=== PATIENT | female | born 1980 | race American Indian/Alaskan Native ===

== ENCOUNTER 2016-09-23 17:30 | Inpatient (IN) | payer BC, OTHER ==
[2016-09-23] MEDS ORDERED: CITRIC ACID/SODIUM CITRATE 30 ML UNIT-DOSE CUP PO ONE (18:08)
[2016-09-23] MEDS: ELECTROLYTE-148 SOLN 1,000 ML IV SCH (18:15)
[2016-09-23 18:23] VITALS: BMI 29.5
[2016-09-23 19:18] LABS: BASOPHIL 0.6 % (0-2.0); EOSINOPHIL 1.3 % (0-4.5); MCHC 32.6 g/dl (32.0-36.0); MEAN CELL VOLUME 95.1 fl (80-96); MEAN PLT VOLUME 10.3 fl (7.5-11.1); NEUTROPHILS 62.4 % (42.8-82.8); PLATELET COUNT 142 K/MM3 (134-434); RDW 14.8 % (11.6-15.6); WHITE BLOOD COUNT 15.1 K/mm3 (4.0-10.0)
[2016-09-23 19:28] LABS: URINE APPEARANCE SLCLOUDY; URINE BILIRUBIN NEGATIVE (NEGATIVE); URINE BLOOD NEGATIVE (NEGATIVE); URINE COLOR STRAW; URINE GLUCOSE (UA) NEGATIVE (NEGATIVE); URINE KETONE NEGATIVE (NEGATIVE); URINE NITRITE NEGATIVE (NEGATIVE); URINE PROTEIN NEGATIVE (NEGATIVE); URINE UROBILINOGEN NEGATIVE E.U./dl (0.2-1.0)
[2016-09-23 19:38] LABS: URINE LEUK ESTERASE TRACE (NEGATIVE)
[2016-09-23 19:39] LABS: ANION GAP 11 (8-16); CALCIUM 8.7 mg/dL (8.5-10.1); CO2 22 mmol/L (21-32); CREATININE 0.8 mg/dL (0.55-1.02); GLUCOSE,RANDOM 63 mg/dL (74-106); SGOT/AST 146 U/L (15-37); SGPT/ALT 275 U/L (12-78)
[2016-09-23 19:40] LABS: URINE BACTERIA MODERATE /hpf (NONE SEEN); URINE MUCUS RARE; URINE RBC <1 /hpf (0-3); URINE WBC 4 /hpf (3-5)
[2016-09-23 19:41] LABS: ACTIVATED PTT 30.3 SECONDS (26.9-34.4); INR 0.97 (0.82-1.09); PROTHROMBIN TIME (PATIENT) 10.7 SEC (9.98-11.88)
--- NOTE | 2016-09-23 20:30 | HP ---
Past Medical History - Primary Care Physician PCP:: Walt Hubbard - Admission Chief Complaint: 35 yo P0 at 35.1 wks with IVF, di/di twin gestatin, GDMA,. seen on 09/20/16, c/o generalized itching, LFTs and bile acids sent. Today during the office visit LFTs noted to be ALT/AST = 520/392, Bile acids - Pending. She reports no JOSEPH, visual changes, RUQ pain, still some itching History Source: Patient Limitations to Obtaining History: No Limitations - Past Medical History ...: 1 ...Para: 0 ...Term: 0 ...: 0 ...Spon : 0 ...Induced : 0 ...Multiple Gestation: 1 ...EDC by Sono: 10/27/16 - Past Surgical History Past Surgical History: Yes: None Hx Myomectomy: Yes Hx Transabdominal Cerclage: Yes - Smoking History Smoking history: Never smoked Have you smoked in the past 12 months: No - Alcohol/Substance Use Hx Alcohol Use: No History of Substance Use: reports: None - Social History Usual Living Arrangement: Yes: With Significant Other Home Medications - Allergies Allergies/Adverse Reactions: Allergies Allergy/AdvReac Type Severity Reaction Status Date / Time No Known Allergies Allergy Verified 09/23/16 18:04 - Home Medications Home Medications: Ambulatory Orders Vit/Iron Fumarate/FA [ Tablet] 1 each PO DAILY 09/23/16 Physical Exam - Maternity Vital Signs: Vital Signs Temperature 98.2 F 09/23/16 18:00 Pulse Rate 76 09/23/16 18:00 Respiratory Rate 18 09/23/16 18:00 Blood Pressure 119/81 09/23/16 18:00 O2 Sat by Pulse Oximetry (%) Constitutional: Yes: Well Nourished Eyes: Yes: WNL HENT: Yes: WNL Neck: Yes: WNL Cardiovascular: Yes: WNL Lungs: Clear to auscultation Breast(s): Yes: WNL - Abdominal Exam/OB Number of Fetuses: Multiple Presentation: Vertex Contractions: Yes Regularity: Irregular Intensity: Unaware Monitor Mode: External Heart Rate (range): 130/140 category 1 Heart Rate Location: Midline Category: I Accelerations: Uniform Decelerations: None - Vaginal Exam/OB Vaginal Bleediing: No Speculum Exam: No (deferred) Presentation: Vertex/Position (twice) - Physical Exam Musculoskeletal: Yes: WNL Extremities: Yes: WNL Integumentary: Yes: WNL ...Motor Strength: WNL Psychiatric: Yes: WNL - Labs Lab Results: CBC, BMP 09/23/16 18:45 09/23/16 18:45 Assessment/Plan 35 yo P 0 @ 35.1 wks with di/di twins and GDM DDx: 1. atypical HELLP 2. Cholestasis of case discussed with Dr. Lucas MFM will admit for observation, repeat labs in am meanwhile Betamethasone NPO past Mn Heplock IV FHR monitor Q 3hr Plan delivery via c/section if worsening status
[2016-09-23] MEDS ORDERED: BETAMET ACET/BETAMET NA PH 30 MG/5 ML VIAL IM ONE (20:51)
[2016-09-24 08:25] LABS: MCH 31.7 pg (25.7-33.7); MCHC 33.3 g/dl (32.0-36.0); MEAN CELL VOLUME 95.2 fl (80-96); MEAN PLT VOLUME 10.8 fl (7.5-11.1); PLATELET COUNT 167 K/MM3 (134-434); RDW 14.6 % (11.6-15.6); WHITE BLOOD COUNT 19.8 K/mm3 (4.0-10.0)
[2016-09-24 08:42] LABS: ANION GAP 11 (8-16); CALCIUM 9.4 mg/dL (8.5-10.1); CO2 20 mmol/L (21-32); GLUCOSE,RANDOM 99 mg/dL (74-106); URIC ACID 9.2 mg/dL (2.6-7.2)
[2016-09-24 08:43] LABS: SGOT/AST 121 U/L (15-37); SGPT/ALT 264 U/L (12-78)
[2016-09-24 09:01] LABS: INR 0.97 (0.82-1.09); PROTHROMBIN TIME (PATIENT) 10.7 SEC (9.98-11.88)
--- NOTE | 2016-09-24 09:42 | PN ---
Progress Note, Physician Chief Complaint: 35yo P0 with Di/Di twins admited due to significantly elevated LFTs no complains of JOSEPH, visual disturbances, or RUQ pain - Current Medication List Current Medications: Active Medications Betamethasone Acet/Betameth SodPhos (Celestone Soluspan -) 15 mg IM ONCE ONE Stop: 09/24/16 10:01 Parenteral Electrolytes (Plasma-Lyte 148 -) 1,000 mls @ 125 mls/hr IV ASDIR DIANNE Last Admin: 09/23/16 18:15 Dose: 125 mls/hr - Objective Vital Signs: Vital Signs Temperature 98.1 F 09/24/16 09:00 Pulse Rate 76 09/24/16 09:00 Respiratory Rate 18 09/24/16 09:00 Blood Pressure 130/72 09/24/16 09:00 O2 Sat by Pulse Oximetry (%) Constitutional: Yes: Well Nourished Eyes: Yes: WNL Neck: Yes: WNL Cardiovascular: Yes: WNL Respiratory: Yes: WNL Gastrointestinal: Yes: WNL Genitourinary: Yes: WNL Musculoskeletal: Yes: WNL Extremities: Yes: WNL Integumentary: Yes: WNL Neurological: Yes: WNL ...Motor Strength: WNL Psychiatric: Yes: WNL Additional Findings/Remarks: FHR A:130s category 1 FHR B: 140s Category 1 TOCO: irregular contractions Labs: CBC, BMP 09/24/16 08:10 09/24/16 08:10 INR, PTT INR 0.97 (0.82-1.09) 09/24/16 08:10 Fibrinogen 434.0 mg/dL (238-498) 09/24/16 08:10 Assessment/Plan 35 yo P 0 @ 35.1 wks with di/di twins and GDM DDx: 1. atypical HELLP vs. 2. Cholestasis of labs stable this am continue observation, repeat labs 6pm Second dose Betamethasone @ 8pm NPO past Mn Heplock IV FHR monitor Q 3hr Plan delivery via c/section if worsening status
[2016-09-24] MEDS ORDERED: BETAMET ACET/BETAMET NA PH 30 MG/5 ML VIAL IM ONE (10:00)
[2016-09-24 13:19] LABS: PLATELET ESTIMATE ADEQUATE (NORMAL)
[2016-09-24 19:32] LABS: MCHC 32.5 g/dl (32.0-36.0); MEAN CELL VOLUME 95.3 fl (80-96); MEAN PLT VOLUME 11.1 fl (7.5-11.1); PLATELET COUNT 154 K/MM3 (134-434); RDW 14.4 % (11.6-15.6); WHITE BLOOD COUNT 25.1 K/mm3 (4.0-10.0)
[2016-09-24 19:59] LABS: ANION GAP 12 (8-16); CALCIUM 8.4 mg/dL (8.5-10.1); CO2 22 mmol/L (21-32); CREATININE 0.9 mg/dL (0.55-1.02); GLUCOSE,RANDOM 112 mg/dL (74-106); URIC ACID 9.7 mg/dL (2.6-7.2)
[2016-09-24 20:00] LABS: SGOT/AST 84 U/L (15-37); SGPT/ALT 193 U/L (12-78)
[2016-09-24 20:19] LABS: PLATELET ESTIMATE ADEQUATE (NORMAL)
[2016-09-25 08:26] LABS: MCH 31.7 pg (25.7-33.7); MCHC 33.1 g/dl (32.0-36.0); MEAN CELL VOLUME 95.7 fl (80-96); MEAN PLT VOLUME 10.6 fl (7.5-11.1); PLATELET COUNT 142 K/MM3 (134-434); RDW 14.7 % (11.6-15.6)
--- NOTE | 2016-09-25 08:30 | PN ---
Ante-Partal Exam - Subjective Subjective: Pt w/o complaints. No headache, no scotoma, no blurry vision, no abdominal or back pain, no nausea or vomiting. Vital Signs: Vital Signs Temperature 98.1 F 09/25/16 06:00 Pulse Rate 76 09/25/16 08:00 Respiratory Rate 18 09/25/16 08:00 Blood Pressure 131/77 09/25/16 08:00 O2 Sat by Pulse Oximetry (%) Bleeding: No Headache: No Visual changes: No Right upper quadrant pain: No Pain (scale 1-10): 0 - Contractions Contractions: Yes Regularity: Irritability Intensity: Unaware Monitor Mode: External - Exam during Labor Heart Rate: 120,130 Variability: Moderate Heart Rate Location: Midline Category: I Monitor Accelerations: Present Monitor Decelerations: None Amniotic Membrane Status: Intact *Physical Exam - Vital Signs Last Vital Signs Temp Pulse Resp BP Pulse Ox 98.1 F 76 18 131/77 09/25/16 06:00 09/25/16 08:00 09/25/16 08:00 09/25/16 08:00 - Physical Exam Comments: 09/25/16 08:29 Comfortable, well appearing, lying in bed General Appearance: Yes: Nourished HEENT: positive: EOMI, Normal ENT Inspection, Normal Voice Neck: positive: Trachea midline, Normal Thyroid Respiratory/Chest: positive: Lungs Clear, Normal Breath Sounds Cardiovascular: positive: Regular Rhythm, Regular Rate Vascular Pulses: Femoral (R): 2+, Femoral (L): 2+ Gastrointestinal/Abdominal: positive: Normal Bowel Sounds, Other (gravid) Musculoskeletal: positive: Normal Inspection Extremity: positive: Pedal Edema (to knee) Integumentary: positive: Normal Color, Dry, Warm Neurologic: positive: delivery table operator II-XII NML intact, Fully Oriented, Alert, Normal Mood/ Affect, Normal Response Assessment/Plan 35yo P0 with twin gestation at [id number] admitted with elevated LFT and suspected HELLP vs cholestasis of . The pt is asymptomatic, afebrile, stable and appears well. 1. Fetuses are with Category I tracing. 2. LFT have improved and there are no new s/sx of preeclampsia 3. Renal function is decreased with elevated Creat and Uric Acid. However, those are also stable. Atypical preeclampsia/HELLP is considered. 4. Leukocytosis is possibly due to the steroid injections. There are not s/sx's of infection 5. GDM is diet controlled. Plan on checking FSG 6. Plan on discussing with MFM re: delivery plans after lab results for today are available 7. Liver and renal US
[2016-09-25 08:38] LABS: WHITE BLOOD COUNT 39.1 K/mm3 (4.0-10.0)
[2016-09-25] MEDS: LACTATED RINGERS SOLUTION 1,000 ML IV SCH ×2 (08:45→21:01)
[2016-09-25 08:52] LABS: INR 0.99 (0.82-1.09); PROTHROMBIN TIME (PATIENT) 10.9 SEC (9.98-11.88)
[2016-09-25 08:55] LABS: ACTIVATED PTT 26.7 SECONDS (26.9-34.4)
[2016-09-25 09:12] LABS: ALBUMIN 2.4 g/dl (3.4-5.0); ALK PHOS 242 U/L (45-117); ANION GAP 12 (8-16); BILIRUBIN,TOTAL 0.5 mg/dL (0.2-1.0); CALCIUM 8.7 mg/dL (8.5-10.1); CO2 21 mmol/L (21-32); GLUCOSE,RANDOM 101 mg/dL (74-106); SGOT/AST 93 U/L (15-37); SGPT/ALT 183 U/L (12-78); TOT PROT 5.8 g/dl (6.4-8.2); URIC ACID 10.2 mg/dL (2.6-7.2)
[2016-09-25 10:55] LABS: METAMYELOCYTE 1 % (0-2)
[2016-09-25 10:56] LABS: PLATELET ESTIMATE SLT DECREASED (NORMAL)
[2016-09-26 08:17] LABS: MCH 31.5 pg (25.7-33.7); MEAN CELL VOLUME 95.5 fl (80-96); MEAN PLT VOLUME 9.7 fl (7.5-11.1); PLATELET COUNT 112 K/MM3 (134-434); RDW 14.3 % (11.6-15.6)
[2016-09-26 08:24] LABS: WHITE BLOOD COUNT 39.1 K/mm3 (4.0-10.0)
[2016-09-26 08:56] LABS: ALBUMIN 2.3 g/dl (3.4-5.0); ANION GAP 8 (8-16); CALCIUM 7.8 mg/dL (8.5-10.1); CO2 24 mmol/L (21-32); GLUCOSE,RANDOM 98 mg/dL (74-106); SGOT/AST 201 U/L (15-37); SGPT/ALT 253 U/L (12-78); TOT PROT 5.1 g/dl (6.4-8.2); URIC ACID 10.7 mg/dL (2.6-7.2)
[2016-09-26 08:58] LABS: ALK PHOS 218 U/L (45-117); BILIRUBIN,TOTAL 0.4 mg/dL (0.2-1.0)
[2016-09-26 09:07] LABS: METAMYELOCYTE 1 % (0-2); SMUDGE CELLS FEW
[2016-09-26 09:09] LABS: PLATELET COMMENT2 NO CLOTTING DETECTED; PLATELET ESTIMATE SLT DECREASED (NORMAL)
[2016-09-26 09:10] LABS: ANISOCYTOSIS 1+
--- NOTE | 2016-09-26 10:05 | PN ---
Ante-Partal Exam - Subjective Subjective: No complaints No headache, no dizziness, no right upper quadrant pain. + FM No loss of fluid or vaginal bleeding. Vital Signs: Vital Signs Temperature 97.5 F L 09/26/16 09:27 Pulse Rate 70 09/26/16 09:27 Respiratory Rate 18 09/26/16 09:27 Blood Pressure 129/80 09/26/16 09:27 O2 Sat by Pulse Oximetry (%) Bleeding: No Headache: No Visual changes: No Right upper quadrant pain: No - Contractions Contractions: No - Assessment/Plan Assessment/Plan: 35 yo @ 35 weeks with di/di twins, gestational diabetes, admitted for abnormal LFTs / suspect atypical HELLP syndrome Laboratory Tests 09/25/16 09/25/16 09/26/16 08:05 08:05 07:45 Plt Count 142 112 L D BUN 18 D Creatinine 1.0 Uric Acid 10.2 H AST 93 H ALT 183 H 09/26/16 07:45 Plt Count BUN 23 H D Creatinine 1.0 Uric Acid 10.7 H AST 201 H D ALT 253 H D 1. no symptoms of PEC at this time, BP normal Noted to have decrease in platelets and increase in AST/ALT, Uric Acid and BUN. 24 hour urine pending Likely worsening of symptoms at this time Discussed plan for possible delivery today. 2. Plan for NPO now, last oral intake at 915 will restart IVF 3. Will discuss case with MFM, awaiting 24 hour urine protein 4. Reassuring tracing - s/p steroid course Will notify NICU for delivery 5. Will monitor
[2016-09-26 14:20] LABS: URINE COLLECTION TIME 24 HOURS; URINE PROTEIN 30 mg/dl
[2016-09-26] MEDS: ELECTROLYTE-148 SOLN 1,000 ML IV SCH (16:00)
--- NOTE | 2016-09-26 17:28 | PN ---
Progress Note (short form) - Note Progress Note: 35yo P0 with twin gestation 35w4d and suspected atypical HELLP. Pt is s/p steroids, noted to have increasing LFT, decreased renal fxn, and decreasing plt count. We discussed mgt options with MFM (Dr. Lucas) and the pt. The decision was made to proceed with delivery by C/S. We discussed the risks and benefits of C/S at length, including but not limited to scarring, pain , bleeding, infection, injury to underlying organs and structures, need for additional surgery to repair/treat any problems or complications, complications/injuries, etc. The pt verbalized her understanding and requested to proceed with surgery.
[2016-09-26 18:26] LABS: ARTERIAL BLOOD GAS pH 7.35 (7.35-7.45)
[2016-09-26 18:27] LABS: ART PUNCT SITE OTHER; ARTERIAL BLD GAS O2 SATURATION 62.6 % (90-98.9); ARTERIAL BLOOD GAS BASE EXCESS -2.2 meq/l (-2-2); ARTERIAL BLOOD GAS HCO3 22.9 meq/L (22-26); ARTERIAL BLOOD GAS PO2 28.8 mmHg (80-100); LPM/O2% 21%; PT. ON O2? n; TYPE OF O2 r/a
[2016-09-26 18:32] LABS: ARTERIAL BLD GAS O2 SATURATION 64.7 % (90-98.9); ARTERIAL BLOOD GAS PO2 29.7 mmHg (80-100); ARTERIAL BLOOD GAS pH 7.35 (7.35-7.45)
[2016-09-26 18:34] LABS: ART PUNCT SITE OTHER; LPM/O2% 21%; PT. ON O2? NO; TYPE OF O2 R/A
[2016-09-26 18:36] LABS: ARTERIAL BLD GAS O2 SATURATION 56.9 % (90-98.9); ARTERIAL BLOOD GAS BASE EXCESS -2.1 meq/l (-2-2); ARTERIAL BLOOD GAS PO2 26.8 mmHg (80-100); ARTERIAL BLOOD GAS pH 7.35 (7.35-7.45)
[2016-09-26 18:37] LABS: ART PUNCT SITE OTHER; ARTERIAL BLOOD GAS HCO3 23.2 meq/L (22-26); LPM/O2% 21%; PT. ON O2? NO; TYPE OF O2 R/A
[2016-09-26] MEDS ORDERED: ONDANSETRON 4 MG/2 ML VIAL IVPB PRN (18:47)
[2016-09-26] MEDS ORDERED: IBUPROFEN 600 MG TABLET (FP) PO PRN (18:47)
--- NOTE | 2016-09-26 19:09 | OP ---
Operative Note - Note: Operative Date: 09/26/16 Pre-Operative Diagnosis: Twin at EGA 35w4d. Atypical HELLP syndrome Operation: Primary LT C/S Findings: Live baby A- girl in vtx presentaton Live baby B- girl in vtx presentation Uterine atony intra/post-operatively, responded to uterine massage Normal uterus, tubes, ovaries Post-Operative Diagnosis: Same as Pre-op Surgeon: Titus Wolfe [employer] Team Member: Isela Hahn Anesthesiologist/COMPUTER SYSTEMS SOFTWARE ARCHITECT: Chas Voss Anesthesia: Spinal Specimens Removed: Placenta Estimated Blood Loss (mls): 1,000 Drains & Tubes with Location: Cortes Cath Drains, Volume Out (mls): 200 (clear) Blood Volume Replaced (mls): 0 Fluid Volume Replaced (mls): 1,500 Operative Report Dictated: Yes
[2016-09-26] MEDS ORDERED: BENZOCAINE 20% 57 GM BOTTLE TP PRN (19:17)
[2016-09-26] MEDS ORDERED: BENZOCAINE 28 GM HEMORRHOIDAL OINTMENT TP PRN (19:17)
[2016-09-26] MEDS ORDERED: oxyCODONE HCL 5 MG TABLET PO PRN (19:17)
[2016-09-26] MEDS ORDERED: METHYLERGONOVINE MALEATE 0.2 MG/1 ML AMP IM PRN (19:17)
[2016-09-26] MEDS ORDERED: WITCH HAZEL 50% (TUCKS) 40 PAD/JAR PAD TP PRN (19:17)
[2016-09-26] MEDS ORDERED: IBUPROFEN 800 MG/8 ML IJ IVPB PRN (19:17)
[2016-09-26] MEDS ORDERED: CEFAZOLIN 1 GM/D5W 50 ML IVPB SCH (19:30)
--- NOTE | 2016-09-26 19:52 | OP ---
DATE OF OPERATION: 09/26/2016 PREOPERATIVE DIAGNOSIS: Twin at estimated gestational age of 35 weeks and 4 days. Atypical HELLP syndrome. POSTOPERATIVE DIAGNOSIS: Twin at estimated gestational age of 35 weeks and 4 days. Atypical HELLP syndrome, delivered. PROCEDURE: Primary low transverse section via Pfannenstiel skin incision. SURGEON: Darlene Wolfe M.D. TOXICOLOGY SUPERVISOR: Isela Hahn M.D. ANESTHESIOLOGIST: Chas Voss M.D. ANESTHESIA: Spinal. COMPLICATIONS: None. ESTIMATED BLOOD LOSS: 1000 mL. URINE OUTPUT: 200 mL of clear urine at the end of the procedure. INTRAVENOUS FLUIDS: 1500 mL of crystalloids. PATHOLOGY: Placenta. FINDINGS: Live baby A girl in vertex presentation. Live baby B girl in vertex presentation. Normal uterus, fallopian tubes, and ovaries. Uterine atony was diagnosed postoperatively prior to transferring the patient out of the OR to recovery room and was treated successfully with a uterine bimanual massage. Approximately 200 to 300 mL of clots were expressed with the bimanual massage, and the uterus was noted to be well contracted and good hemostasis. OPERATIVE REPORT: The patient was PROCEDURE: The patient was met preoperatively. Risks, benefits, and alternatives of surgery were discussed in detail. All questions were answered. The patient was then brought to the OR with the IV running. She was placed on the surgical table in the sitting position. The spinal anesthesia was achieved without difficulty. The patient was then placed on a surgical table in the supine position with leftward tilt. The patient was prepped and draped in the usual sterile fashion. A Cortes catheter was inserted in the bladder and left to drain to gravity. The surgeons then proceeded with the operation. The Pfannenstiel skin incision was made with the knife approximately 2 cm above the pubic symphysis. The incision was carried down to the level of fascia with the knife. Good hemostasis was maintained using cautery judiciously. The fascia was incised in the midline, and the incision was extended bilaterally using curved Flores scissors. The fascia was dissected away from the rectus muscle superiorly and inferiorly using sharp and blunt dissection. The rectus muscles were in the midline bluntly. The peritoneum was identified and entered bluntly. The peritoneal incision was then extended superiorly and inferiorly. The bladder was then dissected away from the lower uterine segment using sharp dissection. The bladder was reflected downwards using Esmer retractor. The uterus was incised transversely in the lower uterine segment. The uterine incision was extended bilaterally using bandage scissors. The amniotic sac was ruptured, and clear amniotic fluid was noted. Twin A was delivered from vertex presentation without complication. Twin A had a nuchal cord wrapped around once and was released without difficulty. The umbilical cord was clamped and cut. The baby was crying spontaneously and was handed to the waiting regulatory affairs assistant. Twin B was also found in the vertex presentation. There was no apparent second amniotic sac around twin B, and the twin B was delivered from vertex presentation without complications. The baby was crying spontaneously. The umbilical cord was clamped and cut, and the baby was handed to the waiting regulatory affairs assistant. Umbilical cord gases were then obtained from both umbilical cords. The placenta was delivered manually and without complications. The uterus was cleared of all clots and debris using laparotomy laps. The uterine incision was repaired using 0 Biosyn suture in a running, locking stitch with good hemostasis and approximation. The uterine incision was then imbricated using a secondary layer of closure with the 0 Biosyn suture once again, good hemostasis was noted. The uterus was noted to be well contracted and the bladder peritoneum was then repaired using a 2-0 chromic suture with running stitch. The operative site was then irrigated using copious amounts of normal saline. Normal saline was aspirated, and once the normal saline was aspirated, good hemostasis was once again confirmed. The abdominal peritoneum was then closing using a 2-0 chromic suture in a running stitch. The rectus muscles were approximated using several interrupted 2-0 chromic sutures. The fascia was closed using a 0 Vicryl suture with a running stitch with good hemostasis and approximation. The subcutaneous adipose tissues were closed using several interrupted 0 Vicryl sutures with good hemostasis and approximation. The skin was closed using a 4-0 Biosyn suture using a subcutaneous stitch with good hemostasis and approximation. Sponge, lap, and needle counts were correct. The surgery was completed. Postoperatively, the patient was diagnosed with uterine atony, and a bimanual uterine massage was performed. Most of the clots were expressed from the lower uterine segment. Once the bimanual massage was completed, good hemostasis was noted, and the uterus was noted to be well contracted. The patient was then transferred to recovery room awake and in stable condition. DARLENE WOLFE M.D. BRENDAN/[id number]
[2016-09-26 21:20] LABS: MCH 30.6 pg (25.7-33.7); MCHC 31.5 g/dl (32.0-36.0); MEAN CELL VOLUME 97.3 fl (80-96); MEAN PLT VOLUME 11.2 fl (7.5-11.1); PLATELET COUNT 115 K/MM3 (134-434); RDW 14.6 % (11.6-15.6); WHITE BLOOD COUNT 26.5 K/mm3 (4.0-10.0)
[2016-09-26] MEDS: OXYTOCIN 20 UNITS in 0.9% NS 1,000 ML IV SCH (21:30)
[2016-09-26 21:47] LABS: INR 1.14 (0.82-1.09); PROTHROMBIN TIME (PATIENT) 12.6 SEC (9.98-11.88)
[2016-09-26 22:00] LABS: ALBUMIN 1.7 g/dl (3.4-5.0); ALK PHOS 163 U/L (45-117); ANION GAP 8 (8-16); BILIRUBIN,TOTAL 0.3 mg/dL (0.2-1.0); CALCIUM 7.6 mg/dL (8.5-10.1); CO2 23 mmol/L (21-32); CREATININE 0.9 mg/dL (0.55-1.02); GLUCOSE,RANDOM 94 mg/dL (74-106); SGOT/AST 299 U/L (15-37); SGPT/ALT 280 U/L (12-78); URIC ACID 9.8 mg/dL (2.6-7.2)
[2016-09-27] MEDS: CEFAZOLIN (PRE-DOCKED) 50 ML IVPB SCH ×3 (01:44→19:53)
[2016-09-27] MEDS: OXYTOCIN 20 UNITS in 0.9% NS 1,000 ML IV SCH (01:44)
[2016-09-27 07:16] LABS: MCH 31.5 pg (25.7-33.7); MCHC 32.6 g/dl (32.0-36.0); MEAN CELL VOLUME 96.8 fl (80-96); PLATELET COUNT 110 K/MM3 (134-434); RDW 14.3 % (11.6-15.6)
[2016-09-27 07:37] LABS: ALBUMIN 1.6 g/dl (3.4-5.0); ANION GAP 6 (8-16); CALCIUM 7.2 mg/dL (8.5-10.1); CO2 24 mmol/L (21-32); CREATININE 0.8 mg/dL (0.55-1.02); GLUCOSE,RANDOM 83 mg/dL (74-106); SGOT/AST 303 U/L (15-37); URIC ACID 9.2 mg/dL (2.6-7.2)
[2016-09-27 07:41] LABS: ALK PHOS 146 U/L (45-117); BILIRUBIN,TOTAL 0.3 mg/dL (0.2-1.0); SGPT/ALT 306 U/L (12-78); TOT PROT 3.7 g/dl (6.4-8.2)
[2016-09-27 07:49] LABS: WHITE BLOOD COUNT 31.7 K/mm3 (4.0-10.0)
[2016-09-27] MEDS: PRENATAL VITAMINS W/ FOLIC ACID TABLET (FP) PO SCH (10:00)
[2016-09-27] MEDS ORDERED: DIPHTH,PERTUSS(ACELL),TET 0.5 ML DISP.SYRIN IM ONE (10:00)
--- NOTE | 2016-09-27 10:00 | PN ---
Progress Note (short form) - Note Progress Note: Anesthesia postop note 35 y/o F s/p spinal anesthesia for c/s, duramorph for postop pain management POD#1, vss, aaox3, pain well controlled, sensorymotor intact distally No anesthesia complications.
--- NOTE | 2016-09-27 11:03 | PN ---
Post Progress Note - Subjective Subjective: No complaints, sitting in a chair. Type of Delivery: Primary C/S Vital Signs: Vital Signs Temperature 98.2 F 09/27/16 06:00 Pulse Rate 81 09/27/16 06:00 Respiratory Rate 18 09/27/16 09:55 Blood Pressure 113/73 09/27/16 06:00 O2 Sat by Pulse Oximetry (%) 98 09/26/16 23:15 Breast Exam: Yes: Soft Uterus: Yes: Fundus Firm, Fundus @ umbilicus Incision: Yes: Dressing dry and intact Abdomen/GI: Yes: Abdomen soft, Tolerating PO Lochia: Yes: Rubra Lochia, amount: Small Extremities: Yes: Calves non-tender, Edema (++ bilaterally) Perineum: Yes: Intact Activity: Other (OOB chair) - Labs Labs: CBC WBC 31.7 K/mm3 (4.0-10.0) H* 09/27/16 06:00 RBC 2.26 M/mm3 (3.60-5.2) L 09/27/16 06:00 Hgb 7.1 GM/dL (10.7-15.3) L 09/27/16 06:00 Hct 21.8 % (32.4-45.2) L 09/27/16 06:00 MCV 96.8 fl (80-96) H 09/27/16 06:00 MCHC 32.6 g/dl (32.0-36.0) 09/27/16 06:00 RDW 14.3 % (11.6-15.6) 09/27/16 06:00 Plt Count 110 K/MM3 (134-434) L 09/27/16 06:00 MPV 11.0 fl (7.5-11.1) 09/27/16 06:00 Neutrophils % Y 09/27/16 06:00 Lymphocytes % Y 09/27/16 06:00 Monocytes % 1.0 % (3.8-10.2) L 09/26/16 07:45 Eosinophils % 1.0 % (0-4.5) 09/24/16 18:30 Basophils % 0.0 % (0-2.0) 09/24/16 08:10 Band Neutrophils 8.0 % (0-10) D 09/26/16 07:45 Metamyelocytes 1 % (0-2) 09/26/16 07:45 Myelocytes 1 % (0-2) D 09/26/16 07:45 Nucleated RBCs 1 % (0-0) H 09/26/16 07:45 Differential Comment Few large plts 09/26/16 07:45 Smudge Cells Few 09/26/16 07:45 Platelet Estimate Slt decreased (NORMAL) 09/26/16 07:45 Platelet Comment No clumping noted 09/26/16 07:45 Platelet Comment No clotting detected 09/26/16 07:45 Anisocytosis 1+ 09/26/16 07:45 Morphology Comment Slide scanned 09/24/16 18:30 Assessment/Plan 35yo P1 s/p primary LT C/S, POD#1, doing well, stable, afebrile. care instructions reviewed. Severe anemia due to acute blood loss. Plan to transfuse 2u PRBC Monitor labs, HELLP pannel. Continue routine postop and care. Ambulation encouraged after transfusion is done.
--- NOTE | 2016-09-27 13:58 | RAPID ---
Physical Examination Vital Signs: Vital Signs BP 111/74 HR 74 finger stick glucose 98 Temperature 97.8 F 09/27/16 10:00 Pulse Rate 87 09/27/16 10:00 Respiratory Rate 18 09/27/16 12:00 Blood Pressure 109/73 09/27/16 10:00 O2 Sat by Pulse Oximetry (%) 98 09/26/16 23:15 Constitutional: Yes: Well Nourished Eyes: Yes: WNL HENT: Yes: WNL, Atraumatic, Normocephalic Neck: Yes: WNL, Supple, Trachea Midline Cardiovascular: Yes: WNL, Regular Rate and Rhythm Respiratory: Yes: WNL, Regular, CTA Bilaterally Gastrointestinal: Yes: WNL, Normal Bowel Sounds Labs: CBC, BMP 09/27/16 06:00 09/27/16 06:00 Rapid Response - Rapid Response Assessment: Rapid response was called at 12:27 pm in [facility]. Rapid response team arrived immediately. Pt was found on the floor in the bathroom in sitting position. Two RNs were holding her. It was a witnessed fall. As per RN, the 2 RNs were helping her go to the bathroom. When the patient was trying to urinate, she blacked out. The RN was able to hold her, and she slid to a sitting position on the floor. She did not hit her head. No seizure activity or LOC was noted. Pt mentioned that she had never fainted, has no history of seizure. Denies CP, sob, cough, palpitations, abd pain, nausea, vomiting, headache, dizziness, tingling, numbness. Vitals were taken: BP 111/74, HR 74, RR 18, Sat 96% on room air, finger stick glucose 98. Physical Exam GENERAL: The patient is a young female in sitting position. Fully oriented x3, in no acute distress. HEAD: Normal with no signs of trauma. EYES: extraocular movements intact, sclera anicteric, conjunctiva clear. No ptosis. ENT: Ears normal, nares patent, dry mucous membranes. NECK: Trachea midline, full range of motion, supple. LUNGS: Breath sounds equal, clear to auscultation bilaterally, no wheezes, no crackles, no accessory muscle use. HEART: tachycardic, regular rhythm, S1, S2 without murmur, rub or gallop. ABDOMEN: Pt has bandages from her surgery. Soft, nontender, nondistended, bowel sounds. EXTREMITIES: 2+ pulses, warm, well-perfused, no edema. NEUROLOGICAL: No facial droop. Normal speech, gait not observed. Moving all extremities PSYCH: Slightly groggy. Normal mood, normal affect. SKIN: Warm, dry, normal turgor, no rashes or lesions noted Assessment and Plan 35 yo P 0 @ 35.1 wks with di/di twins and GDM post day 1 #vasovagal syncope -IVF 1 L bolus given -2 PRBCs were ordered prior to the rapid response. Recommend transfusion. -RN to inform Dr. Wolfe -after fluid resuscitation, pt's symptoms improved. Case discussed with Dr. Patel
[2016-09-27 14:06] LABS: METAMYELOCYTE 2 % (0-2); PLATELET ESTIMATE DECREASED (NORMAL)
[2016-09-27] MEDS: IBUPROFEN 600 MG TABLET (FP) PO PRN (16:20)
[2016-09-27] MEDS: ACETAMINOPHEN 325 MG TABLET (FP) PO PRN (16:21)
[2016-09-27] MEDS: SIMETHICONE 80 MG TAB.CHEW (FP) PO PRN (16:21)
[2016-09-27] MEDS ORDERED: BISACODYL 10 MG SUPP.RECT RC PRN (19:17)
[2016-09-27 23:05] LABS: MCH 30.2 pg (25.7-33.7); MCHC 33.2 g/dl (32.0-36.0); MEAN PLT VOLUME 10.9 fl (7.5-11.1); PLATELET COUNT 109 K/MM3 (134-434); RDW 16.9 % (11.6-15.6)
[2016-09-27 23:13] LABS: WHITE BLOOD COUNT 30.6 K/mm3 (4.0-10.0)
[2016-09-28] MEDS: SIMETHICONE 80 MG TAB.CHEW (FP) PO PRN ×3 (05:09→18:17)
[2016-09-28] MEDS: IBUPROFEN 600 MG TABLET (FP) PO PRN ×3 (05:09→18:18)
[2016-09-28] MEDS: ACETAMINOPHEN 325 MG TABLET (FP) PO PRN ×3 (05:10→18:17)
[2016-09-28 07:14] LABS: ANISOCYTOSIS 1+; MICROCYTOSIS 1+; PLATELET ESTIMATE ADEQUATE (NORMAL); POIKILOCYTOSIS 1+
[2016-09-28 08:02] LABS: MCH 30.9 pg (25.7-33.7); MCHC 34.2 g/dl (32.0-36.0); MEAN CELL VOLUME 90.5 fl (80-96); PLATELET COUNT 122 K/MM3 (134-434); RDW 17.1 % (11.6-15.6)
[2016-09-28 08:14] LABS: WHITE BLOOD COUNT 32.6 K/mm3 (4.0-10.0)
[2016-09-28 08:28] LABS: ALBUMIN 1.9 g/dl (3.4-5.0); ANION GAP 11 (8-16); CALCIUM 7.3 mg/dL (8.5-10.1); CO2 21 mmol/L (21-32); CREATININE 0.7 mg/dL (0.55-1.02); GLUCOSE,RANDOM 99 mg/dL (74-106); SGOT/AST 127 U/L (15-37); SGPT/ALT 162 U/L (12-78); URIC ACID 8.1 mg/dL (2.6-7.2)
[2016-09-28 08:30] LABS: ALK PHOS 158 U/L (45-117); BILIRUBIN,TOTAL 0.5 mg/dL (0.2-1.0); TOT PROT 4.2 g/dl (6.4-8.2)
[2016-09-28 08:34] LABS: ALBUMIN 1.8 g/dl (3.4-5.0); BILIRUBIN,DIRECT 0.1 mg/dL (0.0-0.2); BILIRUBIN,TOTAL 0.5 mg/dL (0.2-1.0); TOT PROT 4.4 g/dl (6.4-8.2)
[2016-09-28 08:45] LABS: INR 0.98 (0.82-1.09); PROTHROMBIN TIME (PATIENT) 10.8 SEC (9.98-11.88)
[2016-09-28 08:48] LABS: ACTIVATED PTT 27.8 SECONDS (26.9-34.4)
[2016-09-28 10:13] LABS: URINE 24 HOUR CREATININE 1137.5 MG/24HR (600-1800)
[2016-09-28 10:19] LABS: METAMYELOCYTE 1 % (0-2)
[2016-09-28 10:20] LABS: PLATELET ESTIMATE SLT DECREASED (NORMAL)
[2016-09-28] MEDS: PRENATAL VITAMINS W/ FOLIC ACID TABLET (FP) PO SCH (11:34)
--- NOTE | 2016-09-28 14:38 | PN ---
Post Progress Note - Subjective Subjective: 35 yo P2 s/p twin primary c/s for atypical HELLP near term Feels well, ambulating, voiding, tolarating PO, +flatus Post Day: 2 Type of Delivery: Primary C/S Vital Signs: Vital Signs Temperature 97.4 F L 09/28/16 09:34 Pulse Rate 77 09/28/16 09:34 Respiratory Rate 20 09/28/16 09:34 Blood Pressure 121/80 09/28/16 09:34 O2 Sat by Pulse Oximetry (%) 98 09/26/16 23:15 Breast Exam: Yes: Soft Uterus: Yes: Fundus Firm, Fundus below umbilicus, Non-tender Incision: Yes: Sutures intact Abdomen/GI: Yes: Abdomen soft, Tolerating PO Lochia: Yes: Rubra Lochia, amount: Small Extremities: Yes: Calves non-tender Activity: Ambulating - Labs Labs: CBC WBC 32.6 K/mm3 (4.0-10.0) H* 09/28/16 07:15 RBC 3.29 M/mm3 (3.60-5.2) L 09/28/16 07:15 Hgb 10.2 GM/dL (10.7-15.3) L 09/28/16 07:15 Hct 29.8 % (32.4-45.2) L 09/28/16 07:15 MCV 90.5 fl (80-96) 09/28/16 07:15 MCH 30.9 pg (25.7-33.7) 09/28/16 07:15 MCHC 34.2 g/dl (32.0-36.0) 09/28/16 07:15 RDW 17.1 % (11.6-15.6) H 09/28/16 07:15 Plt Count 122 K/MM3 (134-434) L 09/28/16 07:15 MPV 11.0 fl (7.5-11.1) 09/28/16 07:15 Neutrophils % 69.0 % (42.8-82.8) 09/28/16 07:15 Lymphocytes % 17.0 % (8-40) 09/28/16 07:15 Monocytes % 0.0 % (3.8-10.2) L D 09/28/16 07:15 Eosinophils % 0.0 % (0-4.5) D 09/28/16 07:15 Basophils % 0.0 % (0-2.0) 09/28/16 07:15 Band Neutrophils 6.0 % (0-10) D 09/28/16 07:15 Metamyelocytes 1 % (0-2) D 09/28/16 07:15 Myelocytes 7 % (0-2) H D 09/28/16 07:15 Nucleated RBCs 7 % (0-0) H 09/28/16 07:15 Differential Comment Manual diff done 09/28/16 07:15 Smudge Cells Few 09/26/16 07:45 Platelet Estimate Slt decreased (NORMAL) 09/28/16 07:15 Platelet Comment Few large plts 09/28/16 07:15 Platelet Comment No clotting detected 09/26/16 07:45 Poikilocytosis 1+ 09/27/16 22:00 Anisocytosis 1+ 09/27/16 22:00 Microcytosis 1+ 09/27/16 22:00 Macrocytosis 1+ 09/27/16 22:00 Morphology Comment Slide scanned 09/24/16 18:30 Retic Count 2.41 % (0.5-1.5) H 09/28/16 07:15 Assessment/Plan 35 yo P 2 now s/p 1' c/s with atypical HELLP s/p 2 Units PRBC Now improving coagulopathy continue observation, repeat labs 6am Rh positive no need for RhoGam Insentive spiromiter [place] ambulation Routine PP care
[2016-09-29] MEDS: SIMETHICONE 80 MG TAB.CHEW (FP) PO PRN ×3 (05:29→19:49)
[2016-09-29] MEDS: ACETAMINOPHEN 325 MG TABLET (FP) PO PRN ×3 (05:29→19:53)
[2016-09-29] MEDS: IBUPROFEN 600 MG TABLET (FP) PO PRN ×3 (05:29→19:52)
[2016-09-29 07:17] LABS: MCH 30.9 pg (25.7-33.7); MCHC 33.6 g/dl (32.0-36.0); MEAN CELL VOLUME 92.2 fl (80-96); MEAN PLT VOLUME 10.3 fl (7.5-11.1); PLATELET COUNT 143 K/MM3 (134-434); RDW 17.2 % (11.6-15.6)
[2016-09-29 07:31] LABS: WHITE BLOOD COUNT 33.5 K/mm3 (4.0-10.0)
[2016-09-29 07:52] LABS: INR 0.96 (0.82-1.09); PROTHROMBIN TIME (PATIENT) 10.6 SEC (9.98-11.88)
--- NOTE | 2016-09-29 07:59 | PN ---
Post Progress Note - Subjective Subjective: 35 yo P2 now s/p Primary c/s of twins with atypical twins no complains, not dizzy, no palpitations, no JOSEPH, no visual complains Post Day: 3 Type of Delivery: Primary C/S Vital Signs: Vital Signs Temperature 97.8 F 09/29/16 05:36 Pulse Rate 82 09/29/16 05:36 Respiratory Rate 20 09/29/16 05:36 Blood Pressure 128/78 09/29/16 05:36 O2 Sat by Pulse Oximetry (%) 98 09/26/16 23:15 Breast Exam: Yes: Soft Uterus: Yes: Fundus Firm Incision: Yes: Sutures intact Abdomen/GI: Yes: Abdomen soft, Tolerating PO Lochia: Yes: Rubra Lochia, amount: Small Extremities: Yes: Calves non-tender Activity: Ambulating - Labs Labs: CBC WBC 33.5 K/mm3 (4.0-10.0) H* 09/29/16 06:45 RBC 3.22 M/mm3 (3.60-5.2) L 09/29/16 06:45 Hgb 10.0 GM/dL (10.7-15.3) L 09/29/16 06:45 Hct 29.7 % (32.4-45.2) L 09/29/16 06:45 MCV 92.2 fl (80-96) 09/29/16 06:45 MCH 30.9 pg (25.7-33.7) 09/29/16 06:45 MCHC 33.6 g/dl (32.0-36.0) 09/29/16 06:45 RDW 17.2 % (11.6-15.6) H 09/29/16 06:45 Plt Count 143 K/MM3 (134-434) 09/29/16 06:45 MPV 10.3 fl (7.5-11.1) 09/29/16 06:45 Neutrophils % Y 09/29/16 06:45 Lymphocytes % Y 09/29/16 06:45 Monocytes % 0.0 % (3.8-10.2) L D 09/28/16 07:15 Eosinophils % 0.0 % (0-4.5) D 09/28/16 07:15 Basophils % 0.0 % (0-2.0) 09/28/16 07:15 Band Neutrophils 6.0 % (0-10) D 09/28/16 07:15 Metamyelocytes 1 % (0-2) D 09/28/16 07:15 Myelocytes 7 % (0-2) H D 09/28/16 07:15 Nucleated RBCs 7 % (0-0) H 09/28/16 07:15 Differential Comment Manual diff done 09/28/16 07:15 Smudge Cells Few 09/26/16 07:45 Platelet Estimate Slt decreased (NORMAL) 09/28/16 07:15 Platelet Comment Few large plts 09/28/16 07:15 Platelet Comment No clotting detected 09/26/16 07:45 Poikilocytosis 1+ 09/27/16 22:00 Anisocytosis 1+ 09/27/16 22:00 Microcytosis 1+ 09/27/16 22:00 Macrocytosis 1+ 09/27/16 22:00 Morphology Comment Slide scanned 09/24/16 18:30 Retic Count 2.41 % (0.5-1.5) H 09/28/16 07:15 Assessment/Plan 35 yo P 2 now s/p 1' c/s with atypical HELLP s/p 2 Units PRBC Now improving coagulopathy WBC still significantly elevated continue observation, repeat labs 6am consider Hematology consult if no improvement tomorrow Rh positive no need for RhoGam Incentive spiromiter Encourage ambulation Routine PP care
[2016-09-29 08:13] LABS: ALBUMIN 1.9 g/dl (3.4-5.0); BILIRUBIN,DIRECT 0.1 mg/dL (0.0-0.2); BILIRUBIN,TOTAL 0.3 mg/dL (0.2-1.0); TOT PROT 4.3 g/dl (6.4-8.2)
[2016-09-29 08:14] LABS: ANION GAP 8 (8-16); CALCIUM 7.6 mg/dL (8.5-10.1); CO2 25 mmol/L (21-32); CREATININE 0.7 mg/dL (0.55-1.02); GLUCOSE,RANDOM 119 mg/dL (74-106); SGOT/AST 62 U/L (15-37); SGPT/ALT 98 U/L (12-78)
[2016-09-29] MEDS: PRENATAL VITAMINS W/ FOLIC ACID TABLET (FP) PO SCH (09:39)
[2016-09-30 07:29] LABS: MCHC 33.1 g/dl (32.0-36.0); MEAN CELL VOLUME 93.7 fl (80-96); MEAN PLT VOLUME 9.8 fl (7.5-11.1); PLATELET COUNT 160 K/MM3 (134-434); RDW 16.9 % (11.6-15.6); WHITE BLOOD COUNT 25.9 K/mm3 (4.0-10.0)
--- NOTE | 2016-09-30 08:06 | PN ---
Post Progress Note - Subjective Subjective: 35 yo P2 s/p 1' c/s feels well, no complains, +BM, tolarating PO, voiding Type of Delivery: Primary C/S Vital Signs: Vital Signs Temperature 97.6 F 09/29/16 22:00 Pulse Rate 90 09/29/16 22:00 Respiratory Rate 18 09/29/16 22:00 Blood Pressure 130/75 09/29/16 22:00 O2 Sat by Pulse Oximetry (%) 98 09/26/16 23:15 Breast Exam: Yes: Soft Uterus: Yes: Fundus Firm Incision: Yes: Dressing dry and intact Abdomen/GI: Yes: Abdomen soft Lochia: Yes: Rubra Lochia, amount: Small Perineum: Yes: Intact Activity: Ambulating - Labs Labs: CBC WBC 25.9 K/mm3 (4.0-10.0) H 09/30/16 06:40 RBC 2.96 M/mm3 (3.60-5.2) L 09/30/16 06:40 Hgb 9.2 GM/dL (10.7-15.3) L 09/30/16 06:40 Hct 27.7 % (32.4-45.2) L 09/30/16 06:40 MCV 93.7 fl (80-96) 09/30/16 06:40 MCH 31.0 pg (25.7-33.7) 09/30/16 06:40 MCHC 33.1 g/dl (32.0-36.0) 09/30/16 06:40 RDW 16.9 % (11.6-15.6) H 09/30/16 06:40 Plt Count 160 K/MM3 (134-434) 09/30/16 06:40 MPV 9.8 fl (7.5-11.1) 09/30/16 06:40 Neutrophils % Y 09/30/16 06:40 Lymphocytes % Y 09/30/16 06:40 Monocytes % 13.0 % (3.8-10.2) H D 09/29/16 06:45 Eosinophils % 3.0 % (0-4.5) D 09/29/16 06:45 Basophils % 1.0 % (0-2.0) D 09/29/16 06:45 Band Neutrophils 1.0 % (0-10) D 09/29/16 06:45 Metamyelocytes 1 % (0-2) D 09/28/16 07:15 Myelocytes 7 % (0-2) H D 09/28/16 07:15 Nucleated RBCs 7 % (0-0) H 09/28/16 07:15 Differential Comment Manual diff done 09/28/16 07:15 Smudge Cells Few 09/26/16 07:45 Platelet Estimate Slt decreased (NORMAL) 09/28/16 07:15 Platelet Comment Few large plts 09/28/16 07:15 Platelet Comment No clotting detected 09/26/16 07:45 Poikilocytosis 1+ 09/27/16 22:00 Anisocytosis 1+ 09/27/16 22:00 Microcytosis 1+ 09/27/16 22:00 Macrocytosis 1+ 09/27/16 22:00 Morphology Comment Slide scanned 09/24/16 18:30 Retic Count 2.41 % (0.5-1.5) H 09/28/16 07:15 Assessment/Plan 35 yo P 2 now s/p 1' c/s with atypical HELLP s/p 2 Units PRBC Now improving coagulopathy WBC tranding down Rh positive no need for RhoGam Incentive spiromiter D/c home NPV for 6wks RTO in 1 week
[2016-09-30 08:18] LABS: ALBUMIN 1.8 g/dl (3.4-5.0); ALK PHOS 138 U/L (45-117); ANION GAP 8 (8-16); BILIRUBIN,TOTAL 0.3 mg/dL (0.2-1.0); CALCIUM 7.5 mg/dL (8.5-10.1); CO2 27 mmol/L (21-32); CREATININE 0.6 mg/dL (0.55-1.02); GLUCOSE,RANDOM 109 mg/dL (74-106); SGOT/AST 56 U/L (15-37); SGPT/ALT 82 U/L (12-78); TOT PROT 4.2 g/dl (6.4-8.2)
[2016-09-30 08:32] LABS: INR 0.96 (0.82-1.09); PROTHROMBIN TIME (PATIENT) 10.5 SEC (9.98-11.88)
[2016-09-30 08:35] LABS: ACTIVATED PTT 26.5 SECONDS (26.9-34.4)
[2016-09-30] MEDS: SIMETHICONE 80 MG TAB.CHEW (FP) PO PRN (09:06)
[2016-09-30] MEDS: IBUPROFEN 600 MG TABLET (FP) PO PRN ×2 (09:07→22:52)
[2016-09-30] MEDS: PRENATAL VITAMINS W/ FOLIC ACID TABLET (FP) PO SCH (09:08)
[2016-09-30 09:46] LABS: METAMYELOCYTE 2 % (0-2); PLATELET ESTIMATE ADEQUATE (NORMAL)
[2016-09-30 15:11] VITALS: TEMP 98
[2016-09-30 18:40] LABS: MCH 30.7 pg (25.7-33.7); MCHC 32.2 g/dl (32.0-36.0); MEAN CELL VOLUME 95.3 fl (80-96); MEAN PLT VOLUME 9.9 fl (7.5-11.1); RDW 17.1 % (11.6-15.6); WHITE BLOOD COUNT 24.6 K/mm3 (4.0-10.0)
[2016-09-30 20:09] LABS: ANISOCYTOSIS 1+; HYPOCHROMIA 1+
--- NOTE | 2016-09-30 21:03 | DS ---
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 Vital Signs: Vital Signs Temperature 98.0 F 09/30/16 14:00 Pulse Rate 101 H 09/30/16 14:00 Respiratory Rate 20 09/30/16 14:00 Blood Pressure 126/79 09/30/16 14:00 O2 Sat by Pulse Oximetry (%) 98 09/26/16 23:15 Constitutional: Yes: Well Nourished Eyes: Yes: WNL HENT: Yes: WNL, Atraumatic Neck: Yes: WNL, Supple Cardiovascular: Yes: WNL, Regular Rate and Rhythm Respiratory: Yes: WNL, Regular, CTA Bilaterally Gastrointestinal: Yes: WNL, Normal Bowel Sounds ...Rectal Exam: Yes: WNL Renal/: Yes: WNL Pelvis: Yes: WNL External Genitalia: Yes: Normal Uterus: Yes: Normal, Firm ....Post : Yes: Uterus firm, Uterus non-tender Breast(s): Yes: WNL Musculoskeletal: Yes: WNL Extremities: Yes: WNL Edema: Yes Edema: LUE: Trace Labs: CBC, BMP 09/30/16 17:45 09/30/16 06:40 Delivery - Delivery Section: Primary Type of Anesthesia: Spinal Episiotomy/Laceration: None EBL (cc): 1,000 Delivery, Multiple Births - Stages of Labor Delivery Baby "A" Date: 09/26/16 Time: 17:48 Delivery Baby "B" Date: 09/26/16 Time: 17:49 - Condition of Multiple Births [place] 1 (A) Digital Computer Operator/Outdoor Adventure Instructor Present: Yes Digital Computer Operator: Sourav Snyder Infant Gender: Female Weight: 4 lb 8 oz Position: Left, OT Total Hours ROM (HRS/MINS): 0/3 Placenta: Yes: Expressed, Normal Configuration 2 (B) Digital Computer Operator/Outdoor Adventure Instructor Present: Yes Digital Computer Operator: Sourav Snyder Infant Gender: Female Weight: 4 lb 4 oz Position: Left, OT Total Hours ROM (HRS/MINS): 0/3 Placenta: Yes: Expressed, Normal Configuration - 1 (A) 1 Minute Score: 9 1 (A) 5 Minutes Score: 9 2 (B) 1 Minute Score: 8 2 (B) 5 Minutes Score: 9 Discharge Summary Reason For Visit: HELLP SYNDROME Twin gestation @ 35weeks Procedures: Principal: C/section Condition: Good - Instructions Diet, Activity, Other Instructions: Physical activity Resume your normal everyday activity as tolerated no heavy lifting or exercise until seen by your surgeon. You may walk unlimited noy of and climb stairs. You may resume driving the car when you feel safe and comfortable behind the wheel. No sexual activity as instructed. Wound care If you have a bandage, leave it on, and keep dry for 48-72 hours. After that time discard the outer bandage. If they are tapes on the skin under the out of bandage leave them in place. They will peel off in the next 7 to 10 days. Do Not Peel them off. You may shower the day after surgery. If there are tapes present on the skin, you may shower over them. Diet There are no dietary restrictions. Eat healthy, high-fiber foods. Drink 6 to 8 glasses of liquid each day. This will assist in keeping your bowels are regular. Pain management You may take Tylenol or acetaminophen or Ibuprofen (for example, Motrin, Advil etc.) from my pain prescription medication is ordered should be taken as prescribed for moderate to severe pain. Call MD for any of the following: Severe pain not relieved by medication Fever of 101 or higher Excessive bleeding or drainage on dressing Inability to urinate Referrals: Walt Hubbard MD [Staff Physician] - Disposition: HOME - Home Medications Comprehensive Discharge Medication List: Ambulatory Orders Vit/Iron Fumarate/FA [ Tablet] 1 each PO DAILY 09/23/16
[2016-09-30 22:49] VITALS: BP 117/67; PULSE 82
--- NOTE | 2016-10-02 15:39 | PATH ---
Surgical Pathology Report Patient Name: ABDOUL GARCIA [facility]. Rec. #: [id number] /Age/Gender: 1980 (Age: 35) / F Account: [id number] Location: [facility] OBS/TOURISM RADIO PRESENTER Taken: 09/26/2016 Received: 09/27/2016 Reported: 10/02/2016 Physicians: Titus Wolfe M.D. Specimen(s) Received PLACENTA,TWIN Clinical History 35.4 weeks, , twin gestation IVF History of uterine polyp removed 2015 Gestational diabetic, increased liver enzymes, atypical HELLP syndrome Final Diagnosis PLACENTA, DELIVERY: DIAMNIOTIC DICHORIONIC TWIN PLACENTA WITH FUSED PLACENTAL DISCS. PLACENTA ARBITRARILY DESIGNATED "A." SHOWS FOCALLY DISRUPTED THIRD TRIMESTER PLACENTA WITH 3 VESSEL UMBILICAL CORD AND UNREMARKABLE PLACENTAL MEMBRANES. PLACENTA ARBITRARILY DESIGNATED "B." SHOWS FOCALLY DISRUPTED THIRD TRIMESTER PLACENTA WITH INTERVILLOUS FIBRIN DEPOSITION, 3 VESSEL UMBILICAL CORD AND UNREMARKABLE PLACENTAL MEMBRANES. Electronically Signed Obed Yao M.D. Gross Description Received in formalin labeled "placenta," is a 534 g twin placenta comprised of 2 fused discs, by dividing membranes. The dividing membranes are holliday and opaque. There are no clamps designating placenta "A" from placenta "B", despite the indication on the requisition. Arbitrarily designated placenta "A" measures 17.5 x 10.0 x 2.2 cm. The attached membranes are holliday, translucent with focal opacities and insert marginally. The umbilical cord measures 17.5 cm in length and averages 0.8 cm in diameter. The cord inserts at the margin. No true knots or strictures are identified. Cut surface of the umbilical cord reveals 3 vessels. The surface is torres blue with moderate fibrin deposition and appropriate caliber vessels. The maternal surface is red-brown with focal defects. Sectioning reveals red-brown, spongy parenchyma. No lesions are identified. Arbitrarily designated placenta "B" measures 15.0 x 10.0 x 2.4 cm. The attached membranes are holliday, translucent with focal opacities and insert marginally. The umbilical cord measures 17.5 cm in length and averages 0.9 cm in diameter. The cord inserts eccentrically, 3.5 cm to the nearest margin. No true knots or strictures are identified. Cut surface of the umbilical cord reveals 3 vessels. The surface is torres blue with moderate fibrin deposition and appropriate caliber vessels. The maternal surface is red-brown with focal defects. Sectioning reveals red-brown, spongy parenchyma. No lesions are identified. Service Worker sections are submitted in 7 cassettes the follows: 1-placenta "A" membrane rolls and umbilical cord; 2-3-full thickness sections of placenta "A"; 4-dividing membranes; 5-placenta "B" membrane rolls and umbilical cord; 6-7-full thickness sections of placenta "B" 10/01/2016 [facility]10/01/2016
== END 2016-09-30 23:55 | disposition home or self-care (01) | DRG 765 ==
LOC: JLDR 17:30 → J3W 09-25 11:23
PROVIDERS: ADMIT Obstetrics & Gynecology; ATTEND Obstetrics & Gynecology
PROC: 10D00Z1 Extraction of Products of Conception, Low, Open Approach (ICD-10-PCS; principal; 2016-09-26)
PROC: 30233N1 Transfusion of Nonautologous Red Blood Cells into Peripheral Vein, Percutaneous Approach (ICD-10-PCS; 2016-09-27)
DX: O30.043 Twin pregnancy, dichorionic/diamniotic, third trimester (principal); K83.1 Obstruction of bile duct; O26.62 Liver and biliary tract disorders in childbirth; D62 Acute posthemorrhagic anemia; O99.12 Other diseases of the blood and blood-forming organs and certain disorders involving the immune mechanism complicating childbirth; D68.9 Coagulation defect, unspecified; O14.24 HELLP syndrome, complicating childbirth; O24.420 Gestational diabetes mellitus in childbirth, diet controlled; O99.02 Anemia complicating childbirth; O90.89 Other complications of the puerperium, not elsewhere classified; R55 Syncope and collapse; Z3A.35 35 weeks gestation of pregnancy; Z37.2 Twins, both liveborn
CPT/HCPCS: 36415; 36430; 36600; 76700-TC; 76775-TC; 80048; 80053; 80076; 81003; 81015; 82575; 82803; 82977; 84156; 84450; 84460; 84550; 85025; 85044; 85362; 85384; 85610; 85730; 86593; 86850; 86900; 86901; 86922; 88307-TC; 94010; 96372; P9038; P9058